=== PATIENT | female | born 1945 | race Caucasian/White ===

== ENCOUNTER 2021-05-10 16:05 | Outpatient (CLI) | payer MEDICARE, MEDICAID | END 2021-05-10 23:59 | disposition home or self-care (01) | LOC: CFH 16:05 | PROVIDERS: ATTEND Nurse Practitioner Family | DX: Z02.9 Encounter for administrative examinations, unspecified (principal) ==

== ENCOUNTER 2021-05-15 16:05 | Outpatient (CLI) | payer MEDICARE, MEDICAID | END 2021-05-15 23:59 | disposition home or self-care (01) | LOC: RAD 16:05 | PROVIDERS: ATTEND Nurse Practitioner Family | DX: K76.0 Fatty (change of) liver, not elsewhere classified (principal); K80.20 Calculus of gallbladder without cholecystitis without obstruction | CPT/HCPCS: 76700 ==